=== PATIENT | male | born 1940 | race Asian ===

== ENCOUNTER 2017-06-11 13:58 | Emergency (ER) | payer MEDICARE, OTHER ==
[~2017-06-11] VITALS: Ht 165.1 cm; Wt 78.9 kg
[2017-06-11 13:58] VITALS: BP 151/76
[~2017-06-11 13:58] MED LIST: COLC0.6T2 PO; INDO50CA PO; UNKNOWN BP MEDS
[2017-06-11] MEDS ORDERED: INDOMETHACIN 25 MG CAPSULE PO STA (14:59)
[2017-06-11] MEDS ORDERED: INDOMETHACIN 25 MG CAPSULE ONE (15:03)
== END 2017-06-11 15:12 | disposition home or self-care (01) ==
LOC: ER 14:03
DX: M10.9 Gout, unspecified (principal); I10 Essential (primary) hypertension; E11.9 Type 2 diabetes mellitus without complications; Z90.49 Acquired absence of other specified parts of digestive tract
CPT/HCPCS: 99283; A4606; Z7610

== ENCOUNTER 2017-07-04 05:17 | Emergency (ER) | payer OTHER ==
[~2017-07-04] VITALS: Ht 167.6 cm; Wt 68.0 kg
[2017-07-04] MEDS ORDERED: INDOMETHACIN 25 MG CAPSULE PO ONE (05:30)
[2017-07-04] MEDS ORDERED: INDOMETHACIN 25 MG CAPSULE ONE (05:42)
--- NOTE | 2017-07-04 06:28 | NUR ---
CALLED RADIOLOGY AND SPOKE WITH EJ. [facility] CALLED IN APPROXIMATELY 30 MINS AGO.
[2017-07-04 07:28] VITALS: BP 146/70
--- NOTE | 2017-07-04 07:30 | NUR ---
Patient discharged to home in stable condition. Written and verbal after care instructions given. Patient verbalizes understanding of instruction. ambulatory with steady gait. vss. leaving via private car.
== END 2017-07-04 07:29 | disposition home or self-care (01) ==
LOC: ER 05:18
DX: M71.22 Synovial cyst of popliteal space [Baker], left knee (principal); M10.9 Gout, unspecified; I10 Essential (primary) hypertension; E11.9 Type 2 diabetes mellitus without complications
CPT/HCPCS: 93971; 99284; A4606 ×2; Z7610

== ENCOUNTER 2017-11-25 20:46 | Emergency (ER) | payer OTHER ==
[~2017-11-25] VITALS: Ht 160 cm; Wt 65.8 kg
[~2017-11-25 20:46] MED LIST changes: -INDO50CA PO; +INDO50CA14 PO
--- NOTE | 2017-11-25 21:02 | NUR ---
PT TO ER BED 13 VIA WC. BIB SELF C/O GOUT TO R ANKLE. NOTED SWELLING AND DISCOLOATION TO R ANKLE. PT STATES HE POKED HIS ANKLE SEVERAL TIMES WITH A "STICK". PT PLACED IN GOWN AND ON SIPHONER. VSS/RESP EVEN UNLABORED/NAD NOTED/SKIN WARM AND DRY/AFEBRILE/DENIES N-V-D/AOX4. AT BEDSIDE FOR EVAL.
[2017-11-25] MEDS ORDERED: INDOMETHACIN 25 MG CAPSULE ONE (21:13)
[2017-11-25] MEDS ORDERED: INDOMETHACIN 25 MG CAPSULE PO ONE (21:30)
[2017-11-25 21:32] VITALS: BP 159/82
--- NOTE | 2017-11-25 21:32 | NUR ---
Patient discharged to home in stable condition. Written and verbal after care instructions given. Patient verbalizes understanding of instruction. Patient ambulatory with a steady gait.
== END 2017-11-25 21:33 | disposition home or self-care (01) ==
LOC: ER 20:47
DX: M10.9 Gout, unspecified (principal); I10 Essential (primary) hypertension; E11.9 Type 2 diabetes mellitus without complications; Z60.2 Problems related to living alone
CPT/HCPCS: A4606; Z7610

== ENCOUNTER 2018-02-18 20:54 | Emergency (ER) | payer OTHER ==
[~2018-02-18] VITALS: Ht 162.6 cm; Wt 70.3 kg
[2018-02-18 22:24] VITALS: BP 139/81
== END 2018-02-18 22:27 | disposition home or self-care (01) ==
LOC: ER 20:54
DX: M10.9 Gout, unspecified (principal); I10 Essential (primary) hypertension; E11.9 Type 2 diabetes mellitus without complications; Z98.890 Other specified postprocedural states; Z60.2 Problems related to living alone
CPT/HCPCS: 99283; A4606; Z7610